=== PATIENT | female | born 1945 | race Two or more races ===

== ENCOUNTER 2018-09-20 07:05 | Outpatient (CLI) | payer OTHER | END 2018-09-20 07:12 | disposition home or self-care (01) | LOC: SONOGRAMA 07:05 → MAMO-SONO 07:15 | DX: E04.2 Nontoxic multinodular goiter (principal) ==

== ENCOUNTER 2018-10-14 08:33 | Outpatient (CLI) | payer OTHER | END 2018-10-14 08:38 | disposition home or self-care (01) | LOC: SONOGRAMA 08:33 | DX: E04.1 Nontoxic single thyroid nodule (principal) ==

== ENCOUNTER 2019-03-21 07:59 | Outpatient (CLI) | payer OTHER | END 2019-03-21 08:03 | disposition home or self-care (01) | LOC: SONOGRAMA 07:59 | DX: E04.2 Nontoxic multinodular goiter (principal) ==

== ENCOUNTER 2020-05-22 07:31 | Outpatient (CLI) | payer OTHER | END 2020-05-22 07:33 | disposition home or self-care (01) | LOC: SONOGRAMA 07:31 → MAMO-SONO 07:45 | PROVIDERS: ATTEND Internal Medicine Endocrinology, Diabetes & Metabolism | DX: E04.1 Nontoxic single thyroid nodule (principal) ==

== ENCOUNTER 2021-05-10 07:25 | Outpatient (CLI) | payer OTHER | END 2021-05-10 07:28 | disposition home or self-care (01) | LOC: SONOGRAMA 07:25 | PROVIDERS: ATTEND Internal Medicine Endocrinology, Diabetes & Metabolism | DX: E04.2 Nontoxic multinodular goiter (principal) ==

== ENCOUNTER 2022-05-14 08:11 | Outpatient (CLI) | payer OTHER | END 2022-05-14 08:27 | disposition home or self-care (01) | LOC: SONOGRAMA 08:11 | PROVIDERS: ATTEND Internal Medicine Endocrinology, Diabetes & Metabolism | DX: E04.2 Nontoxic multinodular goiter (principal); M16.0 Bilateral primary osteoarthritis of hip; M47.817 Spondylosis without myelopathy or radiculopathy, lumbosacral region ==

== ENCOUNTER 2023-05-14 07:03 | Outpatient (CLI) | payer OTHER | END 2023-05-14 07:11 | disposition home or self-care (01) | LOC: SONOGRAMA 07:03 | PROVIDERS: ATTEND Internal Medicine Endocrinology, Diabetes & Metabolism | DX: E04.2 Nontoxic multinodular goiter (principal) ==

== ENCOUNTER 2023-09-12 07:45 | Emergency (ER) | payer OTHER ==
[~2023-09-12] VITALS: Ht 149.9 cm; Wt 54.4 kg
[2023-09-12] MEDS ORDERED: LIPITOR40 M1 (08:08)
[2023-09-12] MEDS ORDERED: IRBESARTAN75 MG (08:08)
[2023-09-12] MEDS ORDERED: LEVOTHYROXINE25 MCG (08:09)
[2023-09-12 10:09] LABS: HEMATOCRIT 35.8 % (36.0-45.00); HEMOGLOBIN 12.5 g/dL (12.0-15.00); MEAN CELL VOLUME 91.7 fL (80.00-100.00); MEAN CORPUSCULAR HEMOGLOBIN 31.9 pg (27.00-32.0); MEAN CORPUSCULAR HGB CONC 34.8 g/dl (32.0-36.0); PLATELET COUNT 194 K/uL (150-450); RED BLOOD COUNT 3.91 M/uL (4.00-6.00); RED CELL DISTRIBUTION WIDTH 13.1 % (11.5-14.5)
== END 2023-09-12 11:30 ==
LOC: ER 07:46
PROVIDERS: General Practice
DX: U07.1 COVID-19 (principal); I10 Essential (primary) hypertension

== ENCOUNTER 2023-10-12 07:03 | Outpatient (CLI) | payer OTHER ==
[~2023-10-12 07:03] MED LIST: IRBESARTAN75 MG; LEVOTHYROXINE25 MCG; LIPITOR40 M1
== END 2023-10-12 07:12 | disposition home or self-care (01) ==
LOC: TOM 07:03
PROVIDERS: ATTEND Internal Medicine Gastroenterology
DX: R10.13 Epigastric pain (principal)

== ENCOUNTER → 2024-06-14 13:00 | Outpatient (CLI) | payer OTHER | END | disposition home or self-care (01) | LOC: SONOGRAMA 13:00 | PROVIDERS: ATTEND Internal Medicine Endocrinology, Diabetes & Metabolism | DX: E04.2 Nontoxic multinodular goiter (principal) ==